=== PATIENT | female | born 1945 | race Caucasian/White ===

== ENCOUNTER → 2016-04-18 | Outpatient (CLI) | payer BC, OTHER, MEDICARE ==
[~2016-04-18] MED LIST: ASPI-781 PO; ATOR10TA65 PO; CALC600T5 PO; CHOL100062 PO; SPIR100T31 PO; VITA1TAB69 PO
--- NOTE | 2016-04-18 16:05 | RADRPT ---
PROCEDURE: XR pelvis/right hip. CLINICAL INDICATION: Hip pain TECHNIQUE: AP pelvis/lateral right hip view performed COMPARISON: 05/17/2015 FINDINGS: There is moderate to severe right hip osteoarthrosis. This is associated with joint space narrowing, subchondral sclerosis and osteophytosis. There is diffuse osteopenia. No fractures or osseous les ions are identified. There is no change in the ovoid calcifications adjacent to the superior aspect of the greater trochanter (query calcific tendinosis). The soft tissues are unremarkable. IMPRESSION: Diffuse osteopenia Moderate to severe right hip osteoarthrosis. Ovoid calcifications adjacent to the right greater trochanter (query calcific tendinosis) RPTAT: HGDB .Mariusz Jacobson MD, Date Time Electronically viewed and signed by .Mariusz Jacobson MD, on 04/18/2016 16:04 .B/
--- NOTE | 2016-04-18 16:11 | RADRPT ---
PROCEDURE: XR right knee. CLINICAL INDICATION: Knee pain. TECHNIQUE: AP weightbearing, lateral weight bearing and sunrise views are available for review. COMPARISON: 08/30/2015 FINDINGS: There is a total knee replacement. There is no evidence of loosening of the prosthesis. The osseous structures are normal in mineralization, architecture and alignment No acute fracture or dislocation is seen.No osseous lesions are identified. The soft tissues are unremarkable . IMPRESSION: Unremarkable total knee replacement. RPTAT: HGDB .Mariusz Jacobson MD, Date Time Electronically viewed and signed by .Mariusz Jacobson MD, on 04/18/2016 16:10 .B/
--- NOTE | 2016-04-18 20:06 | HKNOTE ---
DATE OF SERVICE: 04/18/2016 NEW CONDITION: MAIN COMPLAINT: Pain in the right buttock radiating down the right leg. HISTORY OF MAIN COMPLAINT: The patient is a 71-year-old female who is known to have severe degenera tive osteoarthritis of her right hip, and she knows that she will need to have a hip replacement radha etime in the future. She now complains that she has a new pain which is localized mainly to the rig ht buttock and radiates down the leg, occasionally to the ankle but mostly to the mid calf level. T he pain is burning in nature. She does not get numbness or tingling in the leg. She has previously had episodes of left-sided sciatica for which she has had epidural injections. The patient does not recall having had an MRI scan of the lumbar spine "in the past 5 years at least ." PHYSICAL EXAMINATION: GENERAL: The patient is a fit-looking 71-year-old female. She walks without a walking aid. Her ga it is normal. VITAL SIGNS: Height 5 feet 2 inches. Weight 150 pounds. Blood pressure 125/65, temperature 97.9. BACK: Lateral flexion to the right and extension are full but reproduce the pain down her right leg . Inspection of the spine reveals no list. There is no lumbar paraspinal muscle spasm. The pelvis i s level. Facet stress test is negative bilaterally. Palpation of the spine demonstrates no tenderne ss of the spinous processes, facet joints, sacroiliac joint, sciatic notch, or posterior thigh. NEUROLOGIC: Sensory testing (pinprick) reveals no deficit in the lower extremities. Motor examinati on reveals no muscle deficit in the lower extremities. Deep tendon reflexes in the lower extremities : Right knee jerk +, left knee jerk +, right ankle jerk +, left ankle jerk +. Straight leg raising is positive on the right at 80, negative on the left at 80. Lasegue and EDIS tests are negative. RIGHT HIP: Remarkably, an excellent range of motion without pain. IMAGING: Plain x-rays of her pelvis and right hip were reviewed. These show severe degenerative os teoarthritis of her right hip. DISCUSSION: The patient is a 71-year-old female who has severe arthritis of her right hip which cur rently is not bothering her very much. All her current symptoms are from a form of lumbar radiculop athy (sciatica). MANAGEMENT: 1. The patient is given a prescription for Naprosyn 375 mg p.o. b.i.d. 2. She is being sent for an MRI scan of the lumbar spine. She was given prescription for Valium 20 mg to take about a half an hour before she has her MRI. She will be seen again thereafter for re-e valuation. Dictated By: MICKEY ROLAND/ROBERTA Conf#: [id number] DID#: [id number]
== END | disposition home or self-care (01) ==
LOC: HKI 14:33
DX: M16.11 Unilateral primary osteoarthritis, right hip (principal)
CPT/HCPCS: 73502; 73562; G0463

== ENCOUNTER → 2016-05-07 | Outpatient (CLI) | payer BC, OTHER, MEDICARE ==
--- NOTE | 2016-05-08 06:18 | HKNOTE ---
DATE OF SERVICE: 05/07/2016 The patient comes in with the MRI scan of her lumbar spine for review. The MRI obtained on 04/27/[address] Garcia as showing (please see report). At L2-3, bilateral recess stenosis, right greater than left. At L3-4, right neural foraminal stenosis, borderline compression, existing right L3 nerve and bilate ral lateral recess stenosis, right greater than left, borderline compression the origin of the left L4 nerve. (Patient's pain is mostly on the right side). At L4-5, mild central stenosis. At L5-S1, side retrospondylolisthesis. DISCUSSION: The patient continues to have fairly significant symptoms. She is advised that I do no t believe, in my professional opinion is an orthopedic surgeon in dealing with hips and knees, that there is anything in her spine and will require surgery. We spent considerable time discussing epidural injections. I recommended that we consult with Theanalia jennings Anneliese for a pain management consultation. She will be seen again as necessary. Note that she has severe degenerative osteoarthritis of left hip on x-ray and she will definitely need to have huber mike sooner or later. It is remarkable that she does not have symptoms in that hip yet. Dictated By: MICKEY ROLAND/ROBERTA Conf#: [id number] DID#: [id number]
== END | disposition home or self-care (01) ==
LOC: HKI 15:07
DX: M48.06 Spinal stenosis, lumbar region (principal)
CPT/HCPCS: G0463

== ENCOUNTER → 2017-01-16 | Outpatient (CLI) | payer BC, OTHER, MEDICARE ==
--- NOTE | 2017-01-16 10:25 | RADRPT ---
PROCEDURE: Left knee radiographs. CLINICAL INDICATION: Left knee pain. Postop. TECHNIQUE: Three views. Weight bearing. Frontal, lateral, and patellar view. COMPARISON: No prior studies are available for comparison. FINDINGS: There is no fracture or dislocation. The soft tissues are normal. There is a total left knee constrained arthroplasty which appears satisfactory. There is no lytic or blastic lesion. IMPRESSION: 1. Satisfactory postoperative appearance of the left knee. RPTAT: QQ .Miles Patrick MD, MD Date Time Electronically viewed and signed by .Miles Patrick MD, on 01/16/2017 10:25 .R/
--- NOTE | 2017-01-17 08:57 | HKNOTE ---
DATE OF SERVICE: 01/16/2017 MAIN COMPLAINT: Swelling of the left knee. HISTORY OF MAIN COMPLAINT: Patient is a 72-year-old female who underwent revision of her left total knee replacement 2 years ago. Her ligaments became lax and a thicker spacer was inserted. Since t , she had minimal pain and the knee was stable. The knee does not feel as if it flexed as well a s before but she is satisfied with the result. She now complains that she had sudden onset of swelling of the knee a few days ago and the knee "fel t tight." She did not have any fever and she does not have any recent infections. PHYSICAL EXAMINATION: VITAL SIGNS: Blood pressure 125/60, temperature 98.8. LEFT KNEE: No external sign of infection or inflammation. No swelling, no tenderness. Extension is full. Flexion is 110 degrees. IMAGING: Plain x-rays of the knee obtained today were reviewed. These show all components well att ached to the bone without any sign of loosening or any other problem. MANAGEMENT: Patient is advised that I do not believe that there is any underlying problem, but she seems very skeptical and suspicious of my pronouncement. As a result, I aspirated the knee of appro ximately 5 mL of clear yellow fluid which is being sent for cell count, culture and sensitivity. If there are no abnormalities in his fluid then she can rest assured that the knee is fine. Dictated By: MICKEY ROLAND/ROBERTA Conf#: [id number] DID#: [id number]
== END | disposition home or self-care (01) ==
LOC: HKI 08:47
DX: R22.42 Localized swelling, mass and lump, left lower limb (principal); Z96.652 Presence of left artificial knee joint
CPT/HCPCS: 20610; 73562; G0463

== ENCOUNTER → 2018-05-27 | Outpatient (CLI) | payer BC, MEDICARE, OTHER ==
[~2018-05-27] MED LIST changes: -SPIR100T31 PO; +SPIR100T4 PO
--- NOTE | 2018-05-27 20:38 | HKNOTE ---
DATE OF SERVICE: 05/27/2018 CHIEF COMPLAINT: Left knee pain. HISTORY OF PRESENT ILLNESS: The patient is a 73-year-old retired female who presents status post camille ateral total knee arthroplasty, who is doing very well with regards to her right total knee replaceme nt, but has had persistent problems with the left knee. She underwent revision of the left total kne e arthroplasty through tibial insert exchange for instability approximately 2 years ago. Since that time, she noticed significant improvement in instability, but persistent tightness and anteromedial k nee pain. Her pain is worst when she has been sitting for prolonged periods of time and the knee get s cold and she tries to get up. She does not have difficulty with stairs or walking long distances. She does not have any fever, chills, nausea, vomiting, anorexia or any constitutional symptoms. PAST MEDICAL HISTORY: See medical record. REVIEW OF SYSTEMS: Negative as per above. PHYSICAL EXAMINATION: GENERAL: Alert and oriented, in no acute distress. HEENT: Normocephalic, atraumatic. EXTREMITIES: Left lower extremity inspection: A well-healed surgical incision with no angular defor mity of the knee and no soft tissue swelling, erythema or skin breakdown. Palpation: There is exqui site tenderness to palpation along the pes anserine. There is no significant tenderness around the r emainder of the knee. Stability: The knee is stable to varus, valgus and drawer stress in full exte nsion, in all ranges of flexion. Range of motion 0 to 120 degrees active and passive with mild tight ness anteriorly upon full flexion. NEUROLOGIC: Neurovascularly intact. IMAGING STUDIES: On 05/27/2018, left knee x-rays demonstrate a well-placed and fixed total knee arth roplasty with no evidence of loosening or implant failure. ASSESSMENT: Status post left total knee arthroplasty with persistent anteromedial knee pain secondar y to pes anserine bursitis. PLAN: 1. The patient was counseled about the risks and benefits of corticosteroid injection with risks inc luding but not limited to infection, flare reaction, skin color changes and hyperglycemia. She under stands these risks and wishes to proceed. 2. Under sterile conditions, using a 25-gauge needle, 40 mg of Depo-Medrol along with lidocaine and Marcaine anesthetic were injected into the pes anserine bursa without complication. The patient note d significant improvement in her symptoms just a few minutes after this injection. 3. CT scan of the left knee to confirm implant placement and any evidence of loosening. 4. Previous evaluation for infection through aspiration and blood work showed no evidence of infecti on. 5. Physical therapy for knee range of motion, stretching and strengthening exercises. 6. Oral anti-inflammatory medications for pain. 7. Topical Lidoderm patch in the area of the pes anserine for pain. 8. If the patient's pain has significantly improved with injection, then we will discontinue the CT scan. The patient will return in 3 months. If the patient's pain has not improved with injection si gnificantly, they will obtain the CT scan and see the patient in 1 month. Dictated By: MARCOS BRADEN/ROBERTA Conf#: [id number] DID#: [id number]
--- NOTE | 2018-05-28 16:23 | RADRPT ---
PROCEDURE: Left knee x-ray CLINICAL INDICATION: Pain TECHNIQUE: AP and lateral views of the left knee were obtained. COMPARISON: KNEE 01/16/2017; MINDY KNEE 04/18/2016 FINDINGS: Left knee total arthroplasty appears intact and stable in alignment compared to prior exam. No peripr osthetic fracture. Diffuse osteopenia. Small joint effusion. IMPRESSION: Stable left knee total arthroplasty. RPTAT:AAJJ Laurel Rivero Physician Date Time Electronically viewed and signed by Laurel Rivero Physician on 05/28/2018 16:23 RF/
== END | disposition home or self-care (01) ==
LOC: HKI 10:04
PROVIDERS: ATTEND Orthopaedic Surgery
DX: M70.62 Trochanteric bursitis, left hip (principal)
CPT/HCPCS: 20610; 73560; G0463; J1030

== ENCOUNTER → 2018-08-05 | Outpatient (CLI) | payer BC ==
--- NOTE | 2018-08-06 03:43 | HKNOTE ---
DATE OF SERVICE: 08/05/2018 DIAGNOSIS: Painful left knee, status post total knee arthroplasty, status post left total knee repla cement and status post left revision total knee replacement through polyethylene exchange. HISTORY OF PRESENT ILLNESS: The patient presents today having had improvement with her recent pes an serine injection, but with noted persistent anterior knee pain and feeling of tightness in the front of the knee, especially upon knee flexion. She also notes an area of exquisite tenderness to palpati on over what feels to be a hard foreign body along the incisional line. She is still able to perform activities of daily living without significant restriction and ambulates without assistive devices. PHYSICAL EXAMINATION: GENERAL: Alert and oriented, in no acute distress. MUSCULOSKELETAL: Left knee inspection, she has a well-healed surgical incision with no erythema, chiki ma or discharge. There is no angular deformity at the knee. Palpation: There is no knee effusion. She has exquisite tenderness to palpation at a prominent suture along the medial arthrotomy. There is moderate tenderness to palpation of the pes anserine bursa with knee stability. The knee is stabl e to varus, valgus and drawer stress, in full extension in all ranges of motion. Range of motion, 0 to 100 degrees active and passive with mild tenderness upon full flexion anteriorly. Neurologically intact. ASSESSMENT: Status post left total knee arthroplasty and associated revision to polyethylene exchang e with continued pain secondary to a combination of factors which include pes anserine bursitis, prom inent FiberWire suture, and potential arthrofibrosis versus patellar tracking issues. PLAN: 1. The patient was encouraged to obtain the CT scan that we ordered previously, and she agrees to do so we can evaluate implant position and fixation. 2. Continue physical therapy for aggressive range of motion and strengthening exercises with modalit ies as indicated. 3. Oral anti-inflammatories as needed for pain. 4. Topical Lidoderm patch as needed. 5. Return to clinic in [address] to go over [address] results and reevaluate. Dictated By: MARCOS BRADEN/NTS Conf#: [id number] DID#: [id number]
== END | disposition home or self-care (01) ==
LOC: HKI 09:10
PROVIDERS: ATTEND Orthopaedic Surgery
DX: Z47.1 Aftercare following joint replacement surgery (principal); Z96.652 Presence of left artificial knee joint
CPT/HCPCS: G0463